=== PATIENT | female | born 1960 | race Caucasian/White ===

== ENCOUNTER 2018-05-14 17:25 | Emergency (ER) | payer SELFPAY ==
[~2018-05-14] VITALS: Ht 152.4 cm; Wt 54.0 kg
[2018-05-14] MEDS ORDERED: DIPHENHYDRAMINE 50MG CAPSULE PO ONE (19:45)
[2018-05-14] MEDS ORDERED: PREDNISONE 20MG TABLET PO ONE (19:45)
[2018-05-14] MEDS ORDERED: FAMOTIDINE 20MG TABLET PO ONE (19:45)
[2018-05-14 21:22] VITALS: BP 140/73
== END 2018-05-14 21:24 | disposition home or self-care (01) ==
LOC: ER 17:25
DX: S20.462A Insect bite (nonvenomous) of left back wall of thorax, initial encounter (principal); W57.XXXA Bitten or stung by nonvenomous insect and other nonvenomous arthropods, initial encounter; Y93.89 Activity, other specified; Y92.89 Other specified places as the place of occurrence of the external cause; R03.0 Elevated blood-pressure reading, without diagnosis of hypertension
CPT/HCPCS: 99284; J7512; Q0163